=== PATIENT | female | born 1945 | race Two or more races ===

== ENCOUNTER 2019-11-19 22:53 | Inpatient (IN) | payer MEDICARE, MEDICAID ==
[~2019-11-19] VITALS: Ht 152.4 cm; Wt 126.2 kg
[~2019-11-19 22:53] MED LIST: ALPR0.25 PO; ALPR0.5T GT; ASPITAB34; BENA20TA PO; CARI-277 PO; FURO1TAB31 PO; HYDR-3547 OR; OXYB5TAB24 PO; SIMV-8 PO
[2019-11-20] VITALS (7 sets, daily range): BP systolic 103–136; BP diastolic 43–72
[2019-11-20 00:22] LABS: Basophils # (auto) 0.1 10 ^3/uL (0-0.2); Basophils % (auto) 0.7 % (0.0-2.0); Eosinophils # (auto) 0.2 10 ^3/uL (0-0.8); Eosinophils % (auto) 2.4 % (0.0-7.0); Hematocrit 38.3 % (36.0-46.0); Hemoglobin 12.3 g/dL (12.2-16.2); Lymphocytes # (auto) 1.9 10 ^3/uL (0.4-5.4); Lymphocytes % (auto) 19.1 % (10.0-50.0); Mean Corpuscular Hemoglobin 30.7 pg (28.0-32.0); Mean Corpuscular Hgb Conc. 32.2 g/dL (32.0-36.0); Mean Corpuscular Volume 95.2 fL (80.0-100.0); Monocytes # (auto) 0.7 10 ^3/uL (0-1.3); Monocytes % (auto) 7.1 % (0.0-12.0); Neutrophils # (auto) 6.9 10 ^3/uL (1.6-8.6); Neutrophils % (auto) 70.7 % (37.0-80.0); Nucleated Red Blood Cells % 0.1 %; Platelet Count (auto) 191 10^3/uL (140-450); Red Blood Cells 4.02 10^6/uL (4.0-5.20); Red Cell Distribution Width 17.4 % (11.8-14.3); White Blood Cell 9.8 10^3/uL (4.4-10.8)
[2019-11-20 00:37] LABS: INR 1.12 (0.9-1.15); Partial Thromboplastin Time 27.9 sec (23.64-32.05)
[2019-11-20 00:40] LABS: Albumin 2.5 g/dL (3.4-5.0); BUN/Creatinine Ratio 6.2; Calcium 9.7 mg/dL (8.5-10.1); Magnesium 2.3 mg/dL (1.6-2.6); Potassium 4.3 mmol/L (3.5-5.1)
[2019-11-20 00:45] LABS: Bilirubin, Total 0.8 mg/dL (0.2-1.0); Total Protein 7.7 g/dL (6.4-8.2)
[2019-11-20] MEDS ORDERED: FUROSEMIDE 20 MG/2 ML VIAL IV ONE (01:00)
[2019-11-20] MEDS ORDERED: methylPREDNISolone SOD SUCC 125 MG/2 ML VL IV ONE (01:00)
[2019-11-20] MEDS ORDERED: IOHEXOL 350 MG/ML 100ML IJ ONE (02:42)
[2019-11-20] MEDS ORDERED: TEMAZEPAM 15 MG CAP PO PRN (02:45)
[2019-11-20] MEDS ORDERED: ONDANSETRON HCL 4 MG/2 ML VIAL IV PRN (02:45)
[2019-11-20] MEDS ORDERED: NITROGLYCERIN 0.4 MG SL TAB SL PRN (03:00)
[2019-11-20] MEDS ORDERED: MORPHINE SULF INJ 2 MG/ML SYRINGE 1ML IV PRN (03:00)
[2019-11-20] MEDS: ALBUTEROL SULF 2.5 MG/0.5ML(0.5%) NEB SOLN NEB SCH ×3 (06:31→18:58)
[2019-11-20] MEDS: IPRATROPIUM BROM 0.5 MG/2.5ML INH SOL NEB SCH ×3 (06:31→18:58)
[2019-11-20] MEDS: FUROSEMIDE 40 MG TAB PO SCH ×2 (06:41→18:13)
[2019-11-20] MEDS: BENAZEPRIL HCL 10 MG TAB PO SCH (09:12)
[2019-11-20] MEDS: methylPREDNISolone SOD SUCC 125 MG/2 ML VL IV SCH ×2 (09:12→23:06)
[2019-11-20] MEDS: FAMOTIDINE 20 MG TAB PO SCH ×2 (09:12→22:00)
[2019-11-20] MEDS: APIXABAN 5 MG TAB PO SCH ×2 (09:12→22:59)
[2019-11-20] MEDS ORDERED: APIXABAN 5 MG TAB PO ONE (13:30)
[2019-11-20] MEDS: ALPRAZolam 0.5 MG TAB PO PRN (14:05)
[2019-11-21] MEDS: ALBUTEROL SULF 2.5 MG/0.5ML(0.5%) NEB SOLN NEB SCH ×4 (00:20→18:05)
[2019-11-21] MEDS: IPRATROPIUM BROM 0.5 MG/2.5ML INH SOL NEB SCH ×4 (00:20→18:05)
[2019-11-21] MEDS: FUROSEMIDE 40 MG TAB PO SCH ×2 (06:26→18:07)
[2019-11-21 09:00] VITALS: BP 104/63
[2019-11-21] MEDS: APIXABAN 5 MG TAB PO SCH ×2 (09:46→22:14)
[2019-11-21] MEDS: methylPREDNISolone SOD SUCC 125 MG/2 ML VL IV SCH ×2 (09:46→22:11)
[2019-11-21] MEDS: BENAZEPRIL HCL 10 MG TAB PO SCH (09:47)
[2019-11-21] MEDS: FAMOTIDINE 20 MG TAB PO SCH ×2 (09:48→22:15)
[2019-11-21 10:00] LABS: Basophils # (auto) 0 10 ^3/uL (0-0.2); Eosinophils # (auto) 0 10 ^3/uL (0-0.8); Hematocrit 37.4 % (36.0-46.0); Hemoglobin 11.9 g/dL (12.2-16.2); Lymphocytes # (auto) 0.7 10 ^3/uL (0.4-5.4); Lymphocytes % (auto) 9.8 % (10.0-50.0); Mean Corpuscular Hemoglobin 30.4 pg (28.0-32.0); Mean Corpuscular Hgb Conc. 31.7 g/dL (32.0-36.0); Monocytes # (auto) 0.2 10 ^3/uL (0-1.3); Monocytes % (auto) 2.7 % (0.0-12.0); Neutrophils # (auto) 6.1 10 ^3/uL (1.6-8.6); Neutrophils % (auto) 87.5 % (37.0-80.0); Nucleated Red Blood Cells % 0.2 %; Platelet Count (auto) 173 10^3/uL (140-450); Red Cell Distribution Width 16.7 % (11.8-14.3)
[2019-11-21 10:35] LABS: BUN/Creatinine Ratio 22.5; Calcium 11.5 mg/dL (8.5-10.1); Potassium 4.7 mmol/L (3.5-5.1)
[2019-11-21] MEDS: ACETAMINOPHEN 325 MG TAB PO PRN ×3 (11:00→22:59)
[2019-11-21 13:00] VITALS: BP 105/49
[2019-11-21 17:00] VITALS: BP 110/58
[2019-11-21 22:00] VITALS: BP 108/53
[2019-11-21] MEDS: ALPRAZolam 0.5 MG TAB PO PRN (22:16)
[2019-11-22] MEDS: ALBUTEROL SULF 2.5 MG/0.5ML(0.5%) NEB SOLN NEB SCH ×4 (00:40→19:39)
[2019-11-22] MEDS: IPRATROPIUM BROM 0.5 MG/2.5ML INH SOL NEB SCH ×4 (00:40→19:38)
[2019-11-22 05:00] VITALS: BP 98/63
[2019-11-22] MEDS: FUROSEMIDE 40 MG TAB PO SCH ×2 (06:32→17:53)
[2019-11-22] MEDS: ACETAMINOPHEN 325 MG TAB PO PRN (06:32)
[2019-11-22 08:43] VITALS: BP 129/68
[2019-11-22] MEDS: methylPREDNISolone SOD SUCC 125 MG/2 ML VL IV SCH ×2 (09:38→21:54)
[2019-11-22] MEDS: APIXABAN 5 MG TAB PO SCH ×2 (09:38→21:55)
[2019-11-22] MEDS: BENAZEPRIL HCL 10 MG TAB PO SCH (09:38)
[2019-11-22] MEDS: FAMOTIDINE 20 MG TAB PO SCH ×3 (09:38→22:00)
[2019-11-22] MEDS: HYDROcodone-ACET 5/325MG TAB PO PRN ×2 (09:39→20:03)
[2019-11-22 13:00] VITALS: BP 100/51
[2019-11-22 17:00] VITALS: BP 109/57
[2019-11-22] MEDS: ALPRAZolam 0.5 MG TAB PO PRN (21:55)
[2019-11-22 22:00] VITALS: BP 91/48
[2019-11-23] MEDS: ALBUTEROL SULF 2.5 MG/0.5ML(0.5%) NEB SOLN NEB SCH ×3 (02:44→11:02)
[2019-11-23] MEDS: IPRATROPIUM BROM 0.5 MG/2.5ML INH SOL NEB SCH ×3 (02:44→11:02)
[2019-11-23 03:48] VITALS: BP 109/57
[2019-11-23 05:00] VITALS: BP 119/64
[2019-11-23] MEDS: FUROSEMIDE 40 MG TAB PO SCH (06:00)
[2019-11-23 09:00] VITALS: BP 105/60
[2019-11-23] MEDS: methylPREDNISolone SOD SUCC 125 MG/2 ML VL IV SCH (09:38)
[2019-11-23] MEDS: APIXABAN 5 MG TAB PO SCH (09:38)
[2019-11-23] MEDS: BENAZEPRIL HCL 10 MG TAB PO SCH (09:39)
[2019-11-23] MEDS: FAMOTIDINE 20 MG TAB PO SCH (10:00)
[2019-11-23] MEDS ORDERED: LACTULOSE 20Gm/30ML SOLN PO ONE (12:00)
[2019-11-23 13:00] VITALS: BP 109/79
[2019-11-23] MEDS: HYDROcodone-ACET 5/325MG TAB PO PRN (13:05)
[2019-11-23] MEDS: ALPRAZolam 0.5 MG TAB PO PRN (14:11)
== END 2019-11-23 18:53 | disposition home health service (06) | DRG 189 ==
LOC: ER 22:53 → EDBD 22:53 → TELE-EAST 22:54
PROVIDERS: ADMIT Nurse Practitioner; ATTEND Family Medicine
DX: J96.20 Acute and chronic respiratory failure, unspecified whether with hypoxia or hypercapnia (principal); E43 Unspecified severe protein-calorie malnutrition; I50.33 Acute on chronic diastolic (congestive) heart failure; J44.1 Chronic obstructive pulmonary disease with (acute) exacerbation; J45.901 Unspecified asthma with (acute) exacerbation; E66.01 Morbid (severe) obesity due to excess calories; E78.00 Pure hypercholesterolemia, unspecified; F32.9 Major depressive disorder, single episode, unspecified; F41.9 Anxiety disorder, unspecified; Z20.828 Contact with and (suspected) exposure to other viral communicable diseases; E78.5 Hyperlipidemia, unspecified; I08.0 Rheumatic disorders of both mitral and aortic valves; I25.2 Old myocardial infarction; Z86.711 Personal history of pulmonary embolism; Z86.718 Personal history of other venous thrombosis and embolism; Z90.89 Acquired absence of other organs; Z68.38 Body mass index [BMI] 38.0-38.9, adult; I11.0 Hypertensive heart disease with heart failure; Z91.19 Patient's noncompliance with other medical treatment and regimen
CPT/HCPCS: 36415; 36600; 71045; 71275; 80048; 80053; 82805; 83735; 83880; 84484; 85025; 85379; 85610; 85730; 93005; 93970; 94640; 96374; 96375; G0378

== ENCOUNTER 2019-11-23 23:57 | Inpatient (IN) | payer MEDICARE, MEDICAID ==
[~2019-11-23] VITALS: Ht 160 cm; Wt 116.7 kg
[2019-11-24] MEDS ORDERED: LORazepam 2MG/ML-1ML VIAL IV ONE ×2 (01:45→06:15)
[2019-11-24] MEDS ORDERED: diphenhdrAMINE HCL 50 MG/1 ML VL ONE (01:48)
[2019-11-24 01:50] LABS: Basophils # (auto) 0 10 ^3/uL (0-0.2); Basophils % (auto) 0.1 % (0.0-2.0); Eosinophils # (auto) 0 10 ^3/uL (0-0.8); Hematocrit 39.4 % (36.0-46.0); Hemoglobin 12.6 g/dL (12.2-16.2); Lymphocytes # (auto) 0.7 10 ^3/uL (0.4-5.4); Lymphocytes % (auto) 6.5 % (10.0-50.0); Mean Corpuscular Hemoglobin 30.4 pg (28.0-32.0); Mean Corpuscular Hgb Conc. 32.1 g/dL (32.0-36.0); Mean Corpuscular Volume 94.6 fL (80.0-100.0); Monocytes # (auto) 0.7 10 ^3/uL (0-1.3); Monocytes % (auto) 6.1 % (0.0-12.0); Neutrophils # (auto) 9.6 10 ^3/uL (1.6-8.6); Neutrophils % (auto) 87.3 % (37.0-80.0); Platelet Count (auto) 135 10^3/uL (140-450); Red Blood Cells 4.16 10^6/uL (4.0-5.20); Red Cell Distribution Width 16.5 % (11.8-14.3)
[2019-11-24] MEDS ORDERED: diphenhdrAMINE HCL 50 MG/1 ML VL IV ONE ×2 (02:00→06:15)
[2019-11-24 02:06] LABS: Alanine Aminotransferase 20 U/L (13-56); Albumin 2.6 g/dL (3.4-5.0); Anion Gap 7 (5-15); Aspartate Aminotransferase 12 U/L (15-37); BUN/Creatinine Ratio 26.4; Blood Urea Nitrogen 19 mg/dL (7-18); Calcium 11.2 mg/dL (8.5-10.1); Carbon Dioxide 31 mmol/L (21-32); Chloride 98 mmol/L (98-107); GFR African American 102 mL/min; GFR Non-African American 84 mL/min; Glucose 124 mg/dL (74-106); INR 1.13 (0.9-1.15); Magnesium 2.5 mg/dL (1.6-2.6); Partial Thromboplastin Time 25.1 sec (23.64-32.05); Potassium 3.8 mmol/L (3.5-5.1); Sodium 136 mmol/L (136-145)
[2019-11-24 02:11] LABS: Alkaline Phosphatase 121 U/L (45-117); Bilirubin, Total 0.6 mg/dL (0.2-1.0); Total Protein 7.5 g/dL (6.4-8.2)
[2019-11-24 05:29] LABS: Urine Bacteria MOD /hpf (None Seen); Urine Blood TRACE /uL (Negative); Urine Mucus FEW (None Seen); Urine Specific Gravity 1.015 (1.001-1.035); Urine WBC 130 /hpf (0 - 5); Urine WBC Clumps PRESENT /hpf (None Seen)
[2019-11-24 05:31] LABS: Urine Amorphous Crystal FEW /hpf (None Seen)
[2019-11-24] MEDS ORDERED: cefTRIAXone 1GM/50ML D5W 50 ML IV ONE (05:45)
[2019-11-24] MEDS ORDERED: SODIUM CHLORIDE 0.9% 500 ML IV ONE (05:45)
[2019-11-24 07:18] LABS: Alcohol, Urine < 3.0 mg/dL (0-10); Amphetamine Screen, Urine NEGATIVE (NEGATIVE); Barbiturate Scree,Urine NEGATIVE (NEGATIVE); Benzodiazephine Screen, Urine POSITIVE (NEGATIVE); Cannabinoid Screen, Urine NEGATIVE (NEGATIVE); Cocaine Screen, Urine NEGATIVE (NEGATIVE); Opiate Scree,Urine NEGATIVE (NEGATIVE); Phencyclidine Screen, Urine NEGATIVE (NEGATIVE)
[2019-11-24] MEDS ORDERED: ACETAMINOPHEN 325 MG TAB PO PRN (07:45)
[2019-11-24] MEDS ORDERED: ALBUTEROL SULF 2.5 MG/0.5ML(0.5%) NEB SOLN NEB PRN (07:45)
[2019-11-24] MEDS ORDERED: FAMOTIDINE 20 MG TAB PO SCH (10:00)
[2019-11-24] MEDS ORDERED: ASPirin 81 mg TAB PO SCH (10:00)
[2019-11-24] MEDS: APIXABAN 5 MG TAB PO SCH ×2 (10:10→22:22)
[2019-11-24] MEDS: FAMOTIDINE (10MG/ML) 2ML VL IV SCH (10:27)
[2019-11-24] MEDS ORDERED: LORazepam 2MG/ML-1ML VIAL ONE (11:33)
[2019-11-24] MEDS ORDERED: LORazepam 2MG/ML-1ML VIAL IV PRN (11:45)
[2019-11-24] MEDS ORDERED: methylPREDNISolone SOD SUCC 125 MG/2 ML VL IV ONE (11:45)
[2019-11-24] MEDS: IPRATROPIUM BROM 0.5 MG/2.5ML INH SOL NEB SCH ×3 (14:10→22:17)
[2019-11-24] MEDS: ALBUTEROL SULF 2.5 MG/0.5ML(0.5%) NEB SOLN NEB SCH ×3 (14:10→22:17)
[2019-11-24 14:20] VITALS: BP 134/70
[2019-11-24] MEDS ORDERED: KETOROLAC TROMETH 30 MG/ML 1ML VIAL ONE (15:26)
[2019-11-24] MEDS: KETOROLAC TROMETH 30 MG/ML 1ML VIAL IV PRN (15:31)
[2019-11-24] MEDS ORDERED: FUROSEMIDE 40 MG TAB PO SCH (18:00)
[2019-11-24] MEDS ORDERED: FUROSEMIDE 20 MG/2 ML VIAL IV ONE (18:45)
[2019-11-24] MEDS: ATORVASTATIN 20 MG TAB PO SCH (22:22)
[2019-11-24] MEDS: methylPREDNISolone SOD SUCC 125 MG/2 ML VL IV SCH (22:22)
[2019-11-25] MEDS: IPRATROPIUM BROM 0.5 MG/2.5ML INH SOL NEB SCH ×6 (01:58→22:18)
[2019-11-25] MEDS: ALBUTEROL SULF 2.5 MG/0.5ML(0.5%) NEB SOLN NEB SCH ×6 (01:59→22:18)
[2019-11-25] MEDS: KETOROLAC TROMETH 30 MG/ML 1ML VIAL IV PRN ×2 (05:11→13:16)
[2019-11-25 08:08] LABS: Basophils # (auto) 0 10 ^3/uL (0-0.2); Basophils % (auto) 0.1 % (0.0-2.0); Eosinophils # (auto) 0 10 ^3/uL (0-0.8); Hematocrit 37.3 % (36.0-46.0); Lymphocytes # (auto) 0.7 10 ^3/uL (0.4-5.4); Lymphocytes % (auto) 8.1 % (10.0-50.0); Mean Corpuscular Hemoglobin 30.4 pg (28.0-32.0); Mean Corpuscular Hgb Conc. 32.1 g/dL (32.0-36.0); Mean Corpuscular Volume 94.6 fL (80.0-100.0); Monocytes # (auto) 0.4 10 ^3/uL (0-1.3); Neutrophils # (auto) 7.7 10 ^3/uL (1.6-8.6); Neutrophils % (auto) 86.8 % (37.0-80.0); Nucleated Red Blood Cells % 0.1 %; Platelet Count (auto) 132 10^3/uL (140-450); Red Blood Cells 3.94 10^6/uL (4.0-5.20); Red Cell Distribution Width 16.7 % (11.8-14.3); White Blood Cell 8.8 10^3/uL (4.4-10.8)
[2019-11-25 08:25] LABS: BUN/Creatinine Ratio 35.3; Calcium 11.6 mg/dL (8.5-10.1); Potassium 4.2 mmol/L (3.5-5.1)
[2019-11-25] MEDS: cefTRIAXone 1GM/50ML D5W 50 ML IV SCH (09:19)
[2019-11-25] MEDS: FUROSEMIDE 20 MG/2 ML VIAL IV SCH (09:47)
[2019-11-25] MEDS: FAMOTIDINE (10MG/ML) 2ML VL IV SCH (09:47)
[2019-11-25] MEDS: APIXABAN 5 MG TAB PO SCH (09:48)
[2019-11-25] MEDS: methylPREDNISolone SOD SUCC 125 MG/2 ML VL IV SCH (09:48)
[2019-11-25] MEDS ORDERED: DOCU1CAP31 PO (17:57)
[2019-11-25] MEDS ORDERED: APIX5TAB PO (17:57)
[2019-11-25] MEDS ORDERED: IPRA0.00 NEB (17:57)
[2019-11-25] MEDS ORDERED: BENA10TA9 PO (17:57)
[2019-11-25] MEDS ORDERED: HYDR-4798 PO (17:57)
[2019-11-25] MEDS ORDERED: POTA-180 PO (18:00)
[2019-11-25] MEDS ORDERED: CETI10TA80 PO (18:00)
[2019-11-25] MEDS ORDERED: ALBUAER3 IN (18:01)
--- NOTE | 2019-11-25 20:45 | NUR ---
Telemetry admit from ER MYRIAM SCHWAB admitted to Telemetry unit after SBAR received. Patient oriented to Libby Alvarado, primary RN, unit, room, bed, and unit policies regarding patient care and visiting hours. Patient now on continuous telemetry monitoring, tele box 26# and telemetry reading on arrival to unit is NSR 81. Patient placed on bedside oxygen, weighed by bedscale and encouraged to call if they need something. All questions and concerns addressed, patient verbalized understanding. Note:
[2019-11-25 21:42] VITALS: BP 125/75
--- NOTE | 2019-11-25 23:00 | NUR ---
PT SPILT WATER ALL OVER BED;TURNED WITH GOWN AND CLEAN LINEN APPLIED.
[2019-11-26] MEDS: ATORVASTATIN 20 MG TAB PO SCH ×2 (00:39→21:56)
[2019-11-26] MEDS: APIXABAN 5 MG TAB PO SCH ×3 (00:39→21:56)
[2019-11-26] MEDS: methylPREDNISolone SOD SUCC 125 MG/2 ML VL IV SCH ×3 (00:39→21:55)
--- NOTE | 2019-11-26 02:00 | NUR ---
PT SPILT A WHOLE PITCHER OF WATER ALL OVER BED;CLEAN DRY LINEN AND GOWN APPLIED TO PT;PT TURNED AND REPOSITIONED.
[2019-11-26] MEDS: ALBUTEROL SULF 2.5 MG/0.5ML(0.5%) NEB SOLN NEB SCH ×6 (02:41→22:06)
[2019-11-26] MEDS: IPRATROPIUM BROM 0.5 MG/2.5ML INH SOL NEB SCH ×6 (02:42→22:06)
[2019-11-26 05:47] VITALS: BP 131/82
--- NOTE | 2019-11-26 06:39 | NUR ---
PT TURNED AND PULLED UP;DENIES PAIN;CALL LIGHT IN REACH.WILL CONTINUE TO MONITOR.
[2019-11-26] MEDS ORDERED: LACTULOSE 20Gm/30ML SOLN PO ONE (08:45)
[2019-11-26] MEDS ORDERED: FLEET ENEMA(ADULT) 135 ML PR ONE (08:45)
[2019-11-26] MEDS: cefTRIAXone 1GM/50ML D5W 50 ML IV SCH (08:51)
[2019-11-26 09:00] VITALS: BP 136/69
[2019-11-26] MEDS: FAMOTIDINE (10MG/ML) 2ML VL IV SCH (10:10)
--- NOTE | 2019-11-26 10:10 | NUR ---
Respiratory note: 1000 MED NEB NOT GIVEN. THERAPIST UNAVAILABLE WITH CRITICAL PT.
[2019-11-26] MEDS: FUROSEMIDE 20 MG/2 ML VIAL IV SCH (10:11)
--- NOTE | 2019-11-26 10:12 | NUR ---
FLEET ENEMA GIVEN. PATIENT HAD TWO LARGE SOFT BM.
--- NOTE | 2019-11-26 12:52 | NUR ---
ESBL ECOLI IN URINE DR DANIEL NOTIFIED. ORDERS FOR PICC LINE AND INVANZ.
[2019-11-26 13:00] VITALS: BP 123/66
[2019-11-26] MEDS ORDERED: ERTAPENEM SOD INJ 1 GM in SODIUM CHL 0.9% 50 ML IV ONE (13:00)
[2019-11-26] MEDS: MEROPENEM 1GM IVPB 100 ML IV SCH ×2 (15:51→21:55)
--- NOTE | 2019-11-26 16:00 | NUR ---
Midline Placement: Patient educated on need for midline placement. All risks and benefits explained and all questions and concerns addresses prior to procedure. 18g/10cm midline inserted via L BASILIC vein using Ultrasound. Sterile technique utilized. Blood return obtained from SINGLE lumen and flushed easily with NS using proper technique. Midline secured with saline lock; biodisc and occlusive dressing applied. Primary RN notified. Midline lot # [id number].
[2019-11-26 17:26] VITALS: BP 132/79
--- NOTE | 2019-11-26 19:10 | NUR ---
opening note pt alert to self and place. respirations even nonlabored on room 2lnc. POC discussed. pt on contact isolation. bed in low locked position, call light within reach.
--- NOTE | 2019-11-26 20:00 | NUR ---
Hospitalist Farhan new verbal orders received: Temazepam 15mg PO once. orders read back and verified.
[2019-11-26] MEDS ORDERED: TEMAZEPAM 15 MG CAP PO ONE (21:00)
[2019-11-26 22:00] VITALS: BP 138/72
[2019-11-27] VITALS (7 sets, daily range): BP systolic 107–132; BP diastolic 63–80
[2019-11-27] MEDS: IPRATROPIUM BROM 0.5 MG/2.5ML INH SOL NEB SCH ×6 (02:05→22:22)
[2019-11-27] MEDS: ALBUTEROL SULF 2.5 MG/0.5ML(0.5%) NEB SOLN NEB SCH ×6 (02:05→22:21)
[2019-11-27] MEDS: MEROPENEM 1GM IVPB 100 ML IV SCH ×3 (05:45→21:14)
--- NOTE | 2019-11-27 07:14 | NUR ---
closing note pt resting in semi fowlers with HOB at 30 degrees. respirations even and nonlabored on 2Lnc. bed in low locked position call light within reach.
--- NOTE | 2019-11-27 09:00 | NUR ---
pt seen by Dr. Lopez made aware pt has blood in her sputum, per Dr. Lopze will monitor the sputum and if it gets worst he will change eliquis to once a day. will continue to monitor.
[2019-11-27] MEDS ORDERED: ERTAPENEM SOD INJ 1 GM in SODIUM CHL 0.9% 50 ML IV SCH (10:00)
[2019-11-27] MEDS: DOCUSATE SOD 100 MG CAP PO SCH ×2 (10:01→21:14)
[2019-11-27] MEDS: APIXABAN 5 MG TAB PO SCH ×2 (10:01→21:14)
[2019-11-27] MEDS: FAMOTIDINE (10MG/ML) 2ML VL IV SCH (10:01)
[2019-11-27] MEDS: FUROSEMIDE 20 MG/2 ML VIAL IV SCH (10:02)
[2019-11-27] MEDS: methylPREDNISolone SOD SUCC 125 MG/2 ML VL IV SCH ×2 (10:02→21:12)
--- NOTE | 2019-11-27 10:15 | NUR ---
pt is up on chair, pt had a bowel movement, soft, brown in moderate amount.
--- NOTE | 2019-11-27 10:20 | NUR ---
PT REFUSED PHOTO OF HER SACRAL AREA AT THIS TIME. NOTED HYPERPIGMENTATION, PURPLE, FLAKING AND POSSIBLE DTI ON SACRAL AREA.
--- NOTE | 2019-11-27 10:25 | NUR ---
Z GUARD AND OPTIFOAM APPLIED TO SACRAL AREA.
--- NOTE | 2019-11-27 11:01 | NUR ---
Dr. Lopez at nurses station , made aware pt is asking for her xanax medication, received order for xanax 0.5mg PO TID, order read back and verified.
[2019-11-27] MEDS: ALPRAZolam 0.5 MG TAB PO SCH ×2 (11:37→11:41)
--- NOTE | 2019-11-27 12:53 | NUR ---
Nutrition Assessment Notes Please refer to link for full assessment notes. Est Energy needs: 2346-2417 kcals (12-15 kcal/kgBW) Est Protein needs: 105-131 gms/day (2.0-2.5 gm/kgIBW) d/t pt adiposity Will continue to monitor and reassess prn. Addendum: 11/27/19 at [address] Amended: Links added.
--- NOTE | 2019-11-27 13:09 | NUR ---
assessment Patient is a 73 year old female who is confused. Per patients son Reed prior to admission patient resided home with him and needed assistance. Patient has a scooter oxygen and a fww for home use. Patients PCP is Dr Lomas. Patients other son Forest is her [facility] caregiver. Patient is on service with [facility]. Patient will need a resumption order on discharge. Reed verbalized understanding and agreed to discharge plan home. Addendum: 11/27/19 at 1312 by Fanta KEBEDE Amended: Links added.
--- NOTE | 2019-11-27 13:11 | NUR ---
DR. DANIEL MADE AWARE PT IS IN DEEP SLEEP AFTER XANAX WAS GIVEN, DR. DANIEL ORDERED TO DISCONTINUE XANAX.
--- NOTE | 2019-11-27 15:37 | NUR ---
ATTEMPTED TO TAKE PHOTO OF PT'S SACRAL AREA, PT REFUSED AT THIS TIME AND REQUESTED TO COME BACK IN 15 MINUTES.
--- NOTE | 2019-11-27 16:15 | NUR ---
WOUND PHOTO ON SACRAL AREA TAKEN.
[2019-11-27] MEDS: KETOROLAC TROMETH 30 MG/ML 1ML VIAL IV PRN (21:12)
[2019-11-27] MEDS: ATORVASTATIN 20 MG TAB PO SCH (21:14)
[2019-11-28] MEDS: IPRATROPIUM BROM 0.5 MG/2.5ML INH SOL NEB SCH ×6 (02:46→22:08)
[2019-11-28] MEDS: ALBUTEROL SULF 2.5 MG/0.5ML(0.5%) NEB SOLN NEB SCH ×6 (02:46→22:08)
--- NOTE | 2019-11-28 02:49 | NUR ---
Respiratory note: AT BEDSIDE FOR MED NEB TX PT REFUSED WANT TO CONTINUE RESTING. COMMUNICATED TO KATIE RIDER.
[2019-11-28 05:00] VITALS: BP 116/74
[2019-11-28] MEDS: MEROPENEM 1GM IVPB 100 ML IV SCH ×3 (06:49→23:27)
--- NOTE | 2019-11-28 07:28 | NUR ---
End of Shift Note Endorsed care to dayshift nurse. At this time patient has no s/s of distress or SOB. Respirations are even and unlabored.
--- NOTE | 2019-11-28 07:45 | NUR ---
Opening shift note assumed care of patient form NOR RN Елена. Patient is Aox4. Bed is in lowest locked position, side rails up x2, and call light with in reach. Updated patient on plan of care and patient verbalized understanding. I will continue to monitor Q1hr and PRN.
--- NOTE | 2019-11-28 08:40 | NUR ---
Physician rounding Dr. Lopez at bedside. Update him on patient status. No new orders received at this time.
[2019-11-28 09:00] VITALS: BP 108/55
[2019-11-28] MEDS ORDERED: LACTULOSE 20Gm/30ML SOLN PO ONE (10:30)
--- NOTE | 2019-11-28 11:00 | NUR ---
WOUND CARE NOTE: IN TO SEE PATIENT AT THIS TIME PER WOUND CARE REQUEST. PATIENT NOTED TO HAVE DTI TO SACRUM UPON ASSESSMENT. WOUND CONSULT ORDERED, WOUND PHOTO TAKEN AT THAT TIME BY BEDSIDE NURSE FOR REFERENCE. PATIENT ADMITTED TO [facility] WITH DIAGNOSIS OF METABOLIC ENCEPHALITIS, UTI. PATIENT HAS CURRENT ARSEN SCORE 20. PATIENT CAN SELF TURN/REPOSITION SELF. SHE HAS NOT BEEN REPOSITIONING, IN SPITE OF STAFF GOING IN TO ASSIST HER. PATIENT SAYS THAT IT HURTS TOO MUCH D/T HER FIBROMYALGIA. PATIENT REFUSES TO ALLOW STAFF TO TOUCH HER, BECAUSE OF HER FIBROMYALGIA. PATIENT AGREES TO TURN SELF TO RIGHT SIDE, SO THIS WOUND CARE NURSE CAN VISUALIZE HER SACRUM. PATIENT IS NOTED TO HAVE AN INTACT MAROON/PURPLE DTI TO THE RIGHT SACRUM/BUTTOCK; AND AN OLD DTI THAT IS PURPLE, EVOLVED OPEN TO STAGE 2. PATIENT EDUCATED ON NEED TO REDISTRIBUTE PRESSURE AND PRESSURE ULCERS. PATIENT VERBALIZED UNDERSTANDING, AND IS IN AGREEMENT TO ACCEPT AN AIR BED, WELL SIDE TO SIDE POSITIONING, POSSIBLY GETTING UP IN CHAIR. APPLIED ZGUARD, OPTIFOAM GENTLE DRESSING TO RIGHT SACRUM/BUTTOCKS WOUND. ALL WOUND STATS CAN BE FOUND WITHIN WOUND ASSESSMENT INTERVENTION, LINKED TO THIS NOTE. SKIN/WOUND CARE PLAN UPDATED. SPECIALTY AIR BED ORDERED. PATIENT TO BE PLACED, PENDING DELIVERY BY [facility]. RECOMMEND: FREQUENT SIDE TO SIDE POSITIONING Q 2 HOURS, PRN CONDITION PERMITS, WITH PRESSURE REDISTRIBUTION USING PILLOWS/WEDGES, SPECIALTY AIR BED, SKIN/WOUND CARE PLAN, DAILY/PRN DRESSING CHANGE TO LEFT SACRUM WOUND, DIETARY CONSULT, CONTINUED MONITORING BY WOUND CARE TEAM. Addendum: 11/28/19 at 1450 by Clarissa Saavedra RN Amended: Links added.
[2019-11-28] MEDS ORDERED: METOPROLOL TARTRATE 25 MG TAB PO ONE (11:15)
[2019-11-28] MEDS: APIXABAN 5 MG TAB PO SCH ×2 (11:31→23:28)
[2019-11-28] MEDS: methylPREDNISolone SOD SUCC 125 MG/2 ML VL IV SCH ×2 (11:31→23:27)
[2019-11-28] MEDS: DOCUSATE SOD 100 MG CAP PO SCH ×2 (11:31→23:28)
[2019-11-28] MEDS: FAMOTIDINE (10MG/ML) 2ML VL IV SCH (11:31)
[2019-11-28] MEDS: FUROSEMIDE 20 MG/2 ML VIAL IV SCH (11:34)
[2019-11-28 13:00] VITALS: BP 117/60
[2019-11-28] MEDS ORDERED: ATENOLOL 50 MG TAB PO ONE (13:45)
[2019-11-28] MEDS ORDERED: hydrALAZINE HCL 20 MG/ML VL IV PRN (13:45)
[2019-11-28 17:00] VITALS: BP 130/76
--- NOTE | 2019-11-28 18:00 | NUR ---
RT NOTE PT WAS SEEN BY RT FOR HHN TX. PT TOLERATES WELL VIA TREMAINE Layton. NO ADVERSE REACTION NOTED. CONT ORDERED Addendum: 11/28/19 at 1806 by Jesica Hansen RT Amended: Links added.
--- NOTE | 2019-11-28 19:37 | NUR ---
End of shift note endorsed care to NOC KATIE Morris. No s/s of distress noted.
[2019-11-28 22:00] VITALS: BP 120/64
--- NOTE | 2019-11-28 22:08 | NUR ---
RT NOTE PT WAS SEEN BY RT FOR HHN TX. PT TOLERATES WELL VIA MASK. NO ADVERSE REACTION NOTED. PT REQUESTING A LONGER CANNULA. ONE PROVIDED. CONT ORDERED Addendum: 11/29/19 at 0109 by Jesica Hansen RT Amended: Links added.
[2019-11-28] MEDS: LACTULOSE 20Gm/30ML SOLN PO SCH (23:28)
[2019-11-28] MEDS: ATORVASTATIN 20 MG TAB PO SCH (23:28)
[2019-11-28] MEDS: METOPROLOL TARTRATE 25 MG TAB PO SCH (23:30)
[2019-11-29] MEDS: IPRATROPIUM BROM 0.5 MG/2.5ML INH SOL NEB SCH ×6 (02:45→22:28)
[2019-11-29] MEDS: ALBUTEROL SULF 2.5 MG/0.5ML(0.5%) NEB SOLN NEB SCH ×6 (02:45→22:28)
--- NOTE | 2019-11-29 02:55 | NUR ---
RT NOTE PT WAS SEEN BY RT FOR HHN TX. PT TOLERATES WELL VIA MASK. NO ADVERSE REACTION NOTED. PT COMPLAINS OF DRY NOSE. BUBBLE HUMIDIFIER PROVIDED. CONT ORDERED Addendum: 11/29/19 at 0402 by Jesica Hansen RT Amended: Links added.
[2019-11-29] MEDS: ONDANSETRON HCL 4 MG/2 ML VIAL IV PRN ×2 (03:02→16:05)
[2019-11-29 05:00] VITALS: BP 141/75
[2019-11-29] MEDS: MEROPENEM 1GM IVPB 100 ML IV SCH ×3 (06:21→22:02)
--- NOTE | 2019-11-29 07:30 | NUR ---
OPENING NOTE RECEIVED REPORT FROM NOC RN. POC POSSIBLE DC. PATIENT RESTING IN BED WHILE NURSE CLINICIAN CUTTING PATIENT'S FOOD. EDUCATED PATIENT THAT SHE IS ABLE TO FEED HERSELF. PATIENT STATED SHE THOUGHT SHE WAS NOT READY, AND I REMINDED HER SHE IS ABLE AND CAPABLE TO FEED HERSELF. PATIENT HAS NO C/O PAIN. NO S/S OF DISTRESS NOTED.
[2019-11-29 09:05] VITALS: BP 122/71
--- NOTE | 2019-11-29 09:45 | NUR ---
PATIENT REFUSES CARE PATIENT REFUSES TO TURN ADEQUATELY, WHEN ABLE TO DO SO FOR HERSELF. EDUCATED THE IMPORTANCE OF TURNING IN PREVENTING SKIN BREAKDOWN. PATIENT ACKNOWLEDGED THE NEED, BUT RETURN TO THE SAME SITTING POSITION, SITTING ON SACRUM.
[2019-11-29] MEDS ORDERED: ATENOLOL 50 MG TAB PO SCH (10:00)
[2019-11-29] MEDS: DOCUSATE SOD 100 MG CAP PO SCH ×2 (10:03→22:00)
[2019-11-29] MEDS: LACTULOSE 20Gm/30ML SOLN PO SCH ×2 (10:03→22:01)
[2019-11-29] MEDS: APIXABAN 5 MG TAB PO SCH ×2 (10:03→22:01)
[2019-11-29] MEDS: FUROSEMIDE 20 MG/2 ML VIAL IV SCH (10:03)
[2019-11-29] MEDS: FAMOTIDINE (10MG/ML) 2ML VL IV SCH (10:03)
[2019-11-29] MEDS: methylPREDNISolone SOD SUCC 125 MG/2 ML VL IV SCH ×2 (10:03→22:00)
[2019-11-29] MEDS: METOPROLOL TARTRATE 25 MG TAB PO SCH ×2 (10:04→22:00)
--- NOTE | 2019-11-29 11:30 | NUR ---
PATIENT UP AND OUT OF BED PATIENT SITTING IN CHAIR, NO S/S OF DISTRESS AND NO C/O PAIN. STAFF WAS ABLE TO PLACE AIRBED IN TO ROOM.
[2019-11-29 12:52] VITALS: BP 118/70
--- NOTE | 2019-11-29 14:23 | NUR ---
UNABLE TO FLUSH MIDLINE, 3X FLUSHES USED RESISTANCE MET FOR EACH PUSH. WILL CONTACT MIDLINE RN FOR NEW MIDLINE
--- NOTE | 2019-11-29 14:29 | NUR ---
COMMUNICATION CALLED ED FOR KATIE TREVINO FOR MIDLINE PLACEMENT, AFTER SHIFT. KATIE TREVINO AGREED.
[2019-11-29 16:51] VITALS: BP 113/60
--- NOTE | 2019-11-29 19:35 | NUR ---
Opening Shift Note Assumed care of patient, awake and alert. No S/S of distress/SOB or pain. bed in lowest locked position, safety precautions in place and call light within reach. Instructed on POC and to call for assist PRN, will continue to monitor for changes Q1hr and PRN. Signed: 11/30/19 at 46 by JOSE LUIS DOAN SN <Co-Signature Required> Co-Signed: 11/30/19 at 46 by Christine Rodriguez RN RN
--- NOTE | 2019-11-29 20:00 | NUR ---
Midline Placement: Patient educated on need for midline placement. All risks and benefits explained and all questions and concerns addresses prior to procedure. 18g/10cm midline inserted via LEFT BASILIC vein using Ultrasound. Sterile technique utilized. Blood return obtained from SINGLE lumen and flushed easily with NS using proper technique. Midline secured with saline lock; biodisc and occlusive dressing applied. Primary RN notified. Midline lot # [id number].
[2019-11-29] MEDS: ATORVASTATIN 20 MG TAB PO SCH (22:01)
[2019-11-29 22:15] VITALS: BP 97/64
--- NOTE | 2019-11-29 22:30 | NUR ---
HOSPITALIST Paged and received call from hospitalist on-call, Dr. Perez. New orders received, read back and verified. Will input and carry out
[2019-11-29] MEDS: traMADol HCL 50 MG TAB PO PRN (23:36)
[2019-11-30] MEDS: IPRATROPIUM BROM 0.5 MG/2.5ML INH SOL NEB SCH ×7 (02:32→22:37)
[2019-11-30] MEDS: ALBUTEROL SULF 2.5 MG/0.5ML(0.5%) NEB SOLN NEB SCH ×7 (02:32→22:37)
[2019-11-30 05:10] VITALS: BP 116/61
[2019-11-30] MEDS: traMADol HCL 50 MG TAB PO PRN (05:42)
[2019-11-30] MEDS: MEROPENEM 1GM IVPB 100 ML IV SCH ×3 (05:44→21:55)
[2019-11-30 09:00] VITALS: BP 120/66
[2019-11-30] MEDS: FAMOTIDINE (10MG/ML) 2ML VL IV SCH (09:32)
[2019-11-30] MEDS: FUROSEMIDE 20 MG/2 ML VIAL IV SCH (09:32)
[2019-11-30] MEDS: LACTULOSE 20Gm/30ML SOLN PO SCH ×2 (09:33→21:57)
[2019-11-30] MEDS: methylPREDNISolone SOD SUCC 125 MG/2 ML VL IV SCH ×2 (09:33→21:56)
[2019-11-30] MEDS: DOCUSATE SOD 100 MG CAP PO SCH ×2 (09:33→21:57)
[2019-11-30] MEDS: APIXABAN 5 MG TAB PO SCH ×2 (09:33→21:57)
[2019-11-30] MEDS: METOPROLOL TARTRATE 25 MG TAB PO SCH ×2 (09:33→21:58)
--- NOTE | 2019-11-30 11:45 | NUR ---
Nutrition Follow-up/Consult Notes Wt.: 126.3 kg Pt sleeping with no family by bedside. per records pt with copd exacerbation. pt is currently on cardiac diet with adequate Po of > 75% x 6 per RN doc Est Energy needs: 6576-5562 kcals (12-15 kcal/kgBW), Est Protein needs: 105-131 gms/day (2.0-2.5 gm/kgIBW) d/t pt adiposity. Will continue to monitor and reassess prn. Labs: BUN 24 H, CO2 35 H, GLU 142 H, CA 11.6 H Skin: Art scale 14 mod risk, pt with pressure ulcers per stretch press operator. refer to WC notes for details GI: Pt had 1 BM 11/23 per stretch press operator. PES: 1) Obesity aeb 244% IBW and BMI of 49.7 kg/m2 r/t energy intake in excess of energy needs 2) Altered nutrition related lab values aeb elev CO2, hyperglycemia, hypercalcemia, mod hypoalbuminemia r/t current medical condition Will continue to monitor PO intake, skin status, pertinent labs and weight trend. F/u in 3-5 days. Rec.: 1.) Consider MVI/C bid. 2)Continue to closely monitor pt PO intake to meet at least 75% of meals. 2) Continue current plan of care
[2019-11-30 13:00] VITALS: BP 114/65
[2019-11-30] MEDS ORDERED: HYDROcodone-ACET 5/325MG TAB PO PRN (13:45)
[2019-11-30 14:16] VITALS: BP 119/61
--- NOTE | 2019-11-30 19:35 | NUR ---
Opening Shift Note Assumed care of patient, awake and alert. No S/S of distress/SOB or pain. Bed in lowest locked position, safety precautions in place, and call light within reach. Instructed on POC and to call for assist PRN, will continue to monitor for changes Q1hr and PRN. Signed: 11/30/19 at 2337 by JOSE LUIS DOAN SN <Co-Signature Required> Co-Signed: 11/30/19 at 2337 by Christine Rodriguez RN RN
[2019-11-30 21:28] VITALS: BP 112/73
[2019-11-30] MEDS: ATORVASTATIN 20 MG TAB PO SCH (21:57)
[2019-12-01] MEDS: ALBUTEROL SULF 2.5 MG/0.5ML(0.5%) NEB SOLN NEB SCH ×6 (02:41→22:16)
[2019-12-01] MEDS: IPRATROPIUM BROM 0.5 MG/2.5ML INH SOL NEB SCH ×6 (02:41→22:16)
[2019-12-01 04:45] VITALS: BP 114/58
[2019-12-01] MEDS: MEROPENEM 1GM IVPB 100 ML IV SCH ×3 (05:22→21:12)
--- NOTE | 2019-12-01 08:00 | NUR ---
RECEIVED PATIENT ALERT AND ORIENTED X4, NOT IN DISTRESS, DIMINISHED LS IN BILATERAL UPPER AND CRACKLES SOUNDS IN LOWER LOBES NOTED, RR=16 SAT= 95% WITH O2 2L NC, DEEP BREATHING AND COUGHING ENCOURAGED, VERBALIZED UNDERSTANDING, DENIED SOB AND CHEST PAIN AT THIS MOMENT, SR R=76 ON TELE MONITOR, ABDOMEN SOFT WITH ACTIVE BS, LAST BM=11/28/19 REPORTED, CURRAN CATH IN PLACE AND PATENT, DRAINING CLEAR YELLOW URINE, SACRAL WOUND COVERED WITH DRY AND INTACT OPTI FOAM DRESSING, RT. LOWER EXTREMITY PITTING EDEMA 2+ NOTED, LT LOWE EXTREMITY NONE PITTING EDEMA NOTED, ABLE TO MOVE LEGS AND WIGGLE TOES, RADIAL AND PEDAL PULSES PALPABLE, IN FLUID RESTRICTION 1.2TO 2L/DAY, LIMITING FLUID INTAKE EDUCATION PROVIDED, VERBALIZED UNDERSTANDING, ON CONTACT ISOLATION ORDERED, DENIED PAIN, RESTING ON BED, HEAD OF BED ELEVATED, BED ON LOW POSITION, RAILS UP X2, CALL LIGHT ON REACH, PENDING SS FOR D/C PROCESS, WILL CONTINUE MONITORING.
[2019-12-01 08:16] VITALS: BP 112/62
--- NOTE | 2019-12-01 09:45 | NUR ---
NOT IN DISTRESS, DENIED PAIN, PENDING D/C, DELIO CARDENAS WAS CONTACTED FOR UPDATES AND FOLLOW UP ABOUT HOME O2 WALKER AND MEDICATION, PENDING D/C PROCESS REPORTED, PT WAS CONTACTED FOR FOLLOW UP, WILL CONTINUE MONITORING.
[2019-12-01] MEDS: FUROSEMIDE 20 MG/2 ML VIAL IV SCH (10:42)
[2019-12-01] MEDS: FAMOTIDINE (10MG/ML) 2ML VL IV SCH (10:42)
[2019-12-01] MEDS: methylPREDNISolone SOD SUCC 125 MG/2 ML VL IV SCH ×2 (10:42→21:12)
[2019-12-01] MEDS: LACTULOSE 20Gm/30ML SOLN PO SCH ×2 (10:42→21:12)
[2019-12-01] MEDS: DOCUSATE SOD 100 MG CAP PO SCH ×2 (10:42→21:12)
[2019-12-01] MEDS: METOPROLOL TARTRATE 25 MG TAB PO SCH ×2 (10:43→21:13)
[2019-12-01] MEDS: APIXABAN 5 MG TAB PO SCH ×2 (10:43→21:12)
--- NOTE | 2019-12-01 11:00 | NUR ---
PULL OUT LT. UPPER ARM MIDLINE, DR. FREDY Bueno NOTIFIED, PENDING NEW PICC LINE INSERTION, PICC LINE NURSE WAS CONTACTED AND NOTIFIED, WILL CONTINUE MONITORING.
--- NOTE | 2019-12-01 11:50 | NUR ---
OUT OF BED WITH PT TO THE CHAIR, TRANSFERRED TO BSC REQUESTED, NO BM NOTED, C/O CONSTIPATION, DR. FREDY Bueno WAS NOTIFIED, NOT IN DISTRESS AND DENIED PAIN, WILL CONTINUE MONITORING.
[2019-12-01] MEDS ORDERED: FLEET ENEMA(ADULT) 135 ML PR ONE (12:00)
[2019-12-01 12:08] VITALS: BP 132/74
--- NOTE | 2019-12-01 14:26 | NUR ---
Midline Placement: Patient educated on need for midline placement. All risks and benefits explained and all questions and concerns addresses prior to procedure. 18g/10cm midline inserted via left basilic vein using Ultrasound. Sterile technique utilized. Blood return obtained from lumen and flushed easily with NS using proper technique. Midline secured with saline lock; biodisc and occlusive dressing applied. Primary RN notified. Midline lot #[id number]
--- NOTE | 2019-12-01 15:30 | NUR ---
FLEET ENEMA X1 WAS ADMINISTERED ORDERED, SMALL HARD BROWN BM NOTED, D/C EVALUATION PICTURE WAS TAKEN, WOUND CLEANED AND DRESSING WAS CHANGED ORDERED, TOLERATED WELL, PENDING D/C, WILL CONTINUE MONITORING.
--- NOTE | 2019-12-01 15:58 | NUR ---
DELIO CARDENAS WAS CONTACTED FOR D/C STATUS FOLLOW UP, PENDING D/C PROCESS NO PROGRESS FOR TODAY REPORTED, DR. FREDY URIOSTEUGI WAS CALLED FOR FOLLOW UP AND D/C DELAY UPDATES LEFT A MESSAGE, WAITING FOR CALL BACK, MJ MANNING WAS CONTACTED ON [phone] AND UPDATED REQUESTED, WILL CONTINUE MONITORING.
--- NOTE | 2019-12-01 16:00 | NUR ---
D/C Planning Per SS consult to resume home health with [facility] for IV abx, home oxygen at 3 l/min and walker. CHENG Villegas will complete IV abx. Informed KATIE Taylor patient has a walker at home that was given to her on 07/31/2019 from [facility]. Faxed clinical information to [facility] and [facility] for home O2 at 3l/min requesting for them to teach patient and family at home how to properly use the home oxygen. Per Елена with [facility] portable will be deliver to bedside and concentrate to home. [facility] they will teach patient son Reed. Per Lilli ith [facility] they will resume service for patient within 24hrs upon d/c day. Informed KATIE Taylor
[2019-12-01 16:32] VITALS: BP 114/58
[2019-12-01] MEDS ORDERED: LACTULOSE 20Gm/30ML SOLN PO ONE (18:30)
--- NOTE | 2019-12-01 19:27 | NUR ---
Resting on bed, not in distress, head of bed elevated, bed on low position, rails up x2, call light on reach, report was given to the manager shift RN.
--- NOTE | 2019-12-01 19:30 | NUR ---
Opening Shift Note Assumed care of patient, awake and alert. No S/S of distress/SOB or pain. Insructed on POC and to callfor assist PRN, will continue to monitor for changes Q1hr and PRN. Fall and safety precautions in place. Call light within reach.
[2019-12-01] MEDS: ATORVASTATIN 20 MG TAB PO SCH (21:12)
[2019-12-01 22:00] VITALS: BP 122/70
--- NOTE | 2019-12-02 | NUR ---
DISTURBANCE Patient screaming in room "HELP ME! HELP ME!" Primary RN was preoccupied in another patient's room when VICE PRESIDENT SALES entered room to find patient turned on her side, reaching into her bottom with her hand, saying "GET IT OUT!" VICE PRESIDENT SALES clarified with patient that patient was talking about stool. VICE PRESIDENT SALES was told by patient to put on a glove and put her finger inside her anus to get out her stool. VICE PRESIDENT SALES informed patient that she could not do that, that patient needed to push stool out and will be cleaned up once she's done. Patient continued screaming, saying "GET IT OUT!" VICE PRESIDENT SALES came to other patient's room to inform primary RN. Primary RN entered room to find patient turned on her side with small amount of stool on bed and yelling "GET IT OUT!" Informed patient that primary RN cannot "get it out" due to scope of practice, informed patient that she had already been given several medications (see emar) to have bowel movement. Patient continues to scream "GIVE ME A GLOVE, I'LL DO IT MYSELF!" Patient was given glove and curtain closed for privacy. Patient continues to scream while disimpacting herself, screams heard all throughout central unit. Approximately 20 minutes later, primary RN entered room because patent continues to scream. Upon entering room, patient was found with glove on hand and stool on bed, on glove, on gown, and on handrails of bed. Patient continues to scream "HELP ME! GET I CAN'T GET IT OUT! GET IT OUT FOR ME! I'M DYING HERE!" Informed patient again that all medications to help produce a bowel movement has been given and primary RN cannot disimpact her. Patient continues to scream, "GET ME TOWELS! CLEAN ME UP!" Clean towels and new linen placed in room and patient was informed that when she's done, she will be cleaned up. Patient continues to scream in [place], primary RN left room. Patient's screams still heard throughout central station, screaming in [place]. Secondary RN and VICE PRESIDENT SALES entered room, patient continues to scream, saying primary RN did not want to help her, primary RN did not give her gloves, primary RN did not give her towels, primary RN did not "want" to help her by disimpacting her, did not "want" to give her towels, did not "want" to give her gloves. Secondary RN and VICE PRESIDENT SALES attempted to help patient, but patient continues to scream about what primary RN did not "want" to do and patient continued to argue, not allowing secondary RN and VICE PRESIDENT SALES to assist. Secondary RN and VICE PRESIDENT SALES exited room. Patient called out to nurse's station via telephone, secondary RN answered. Patient asked for charge nurse's name, secondary RN answered. Patient demanded that she speaks with charge master coordinator. 0100: profile stitching machine operator enters room to speak with patient. Patient continues to scream at charge master coordinator, stating primary RN did not "want" to disimpact her, primary RN did not give her gloves, primary RN did not give her towels, primary RN and all other staff "abandoned" her when she "needs help." profile stitching machine operator pointed out to patient that she sees used glove in bed and clean towels within reach. Patient continues to scream at charge master coordinator, stating primary RN did not "want" to give her glove and clean towels. profile stitching machine operator informed patient that primary RN did give her everything as requested and if she was done with bowel movement, she could be cleaned up. Patient continued to scream and argue with charge master coordinator that primary RN did not "want" to do anything as requested. profile stitching machine operator and patient continued to argue over same points for approximately 15 minutes. Secondary RN entered room to help alleviate situation and inform patient that he witnessed primary RN give patient everything she's been demanding. Patient continues to scream at secondary RN and charge master coordinator that primary RN did not give her anything she requested or did not "want" to give her anything she requested and will write a report. Finally when charge master coordinator exists room, she informs primary RN that patient has agreed to be cleaned of stool by secondary RN and VICE PRESIDENT SALES. 0130: Secondary RN and VICE PRESIDENT SALES in room, attempting to clean patient while patient continues to scream that secondary RN and VICE PRESIDENT SALES aren't doing doing it properly. Patient's screams heard out in central station, stating "I HAVE FIBROMYALGIA, I HURT EVERYWHERE, DON'T TOUCH ME LIKE THAT, DON'T MOVE ME LIKE THAT!" Secondary RN and VICE PRESIDENT SALES informing patient that she needs to move extremities and help in turning to clean properly. Patient able to move all four extremities and able to turn herself, but continues to scream "I CAN'T DO IT! I CAN'T DO IT!" Secondary RN and VICE PRESIDENT SALES continue to encourage patient to independently move herself. Patient eventually cleaned of stool, surfaces cleaned of stool, partial linen change done, and gown changed. When attempting to reposition patient, secondary RN and VICE PRESIDENT SALES attempted to lower head of bed, but patient screaming "I CAN'T BREATHE, I HAVE COPD!" Secondary RN and VICE PRESIDENT SALES educating patient that head of bed needs to be lowered to make it easier for patient to move up. Patient continues to scream "I CAN'T DO IT! YOU NEED TO HELP ME! MY SON IS STRONGER THAN YOU AND HE CAN DO IT!" Finally, patient repositioned herself in bed. Then, patient began demanding pillows to "support" all extremities and lower back. Patient demands that secondary RN and VICE PRESIDENT SALES pull pillow down underneath bottom to "support" her lower back. Secondary RN and VICE PRESIDENT SALES attempted to pull pillow down until patient got frustrated, grabbed pillow herself, and positioned pillow underneath her bottom independently while screaming "LIKE THIS!" Secondary RN exited room. VICE PRESIDENT SALES still in room, responding to every patient request, including extra towels for "support," extra pillows for "support," extra blankets "because I'm cold," and "my toes get cold," giving patient snacks and juice, all while patient continues to argue that "nobody helps me" and "everybody abandoned me," even telling VICE PRESIDENT SALES that "you don't help me." VICE PRESIDENT SALES continued to inform patient that she is helping, that secondary RN was helping earlier, that primary RN helped earlier, that charge master coordinator helped earlier. Patient refusing to accept that she has been helped by staff, still repeating "nobody helps me." Finally after every patient request has been fulfilled, VICE PRESIDENT SALES able to exit room at 0200. Will continue to monitor
[2019-12-02] MEDS: IPRATROPIUM BROM 0.5 MG/2.5ML INH SOL NEB SCH ×4 (02:20→14:10)
[2019-12-02] MEDS: ALBUTEROL SULF 2.5 MG/0.5ML(0.5%) NEB SOLN NEB SCH ×4 (02:20→14:10)
--- NOTE | 2019-12-02 04:45 | NUR ---
REFUSE Patient refusing morning vitals. Will inform day shift RN
[2019-12-02] MEDS: MEROPENEM 1GM IVPB 100 ML IV SCH ×2 (05:43→14:00)
--- NOTE | 2019-12-02 06:00 | NUR ---
FALSE STATEMENTS RT came out to nurse's station, stating patient is asking for TELEVISION PRODUCTION ASSISTANT and has a "long list" of things she wants and she "has been asking for help all night," but hasn't "gotten any."
--- NOTE | 2019-12-02 07:51 | NUR ---
RECEIVED PATIENT ALERT AND ORIENTED X4, NOT IN DISTRESS, DIMINISHED LS IN BILATERAL UPPER AND CRACKLES SOUNDS IN LOWER LOBES NOTED, RR=18 SAT= 94% RA, DEEP BREATHING AND COUGHING ENCOURAGED, VERBALIZED UNDERSTANDING, DENIED SOB AND CHEST PAIN AT THIS MOMENT, SR R=62 ON TELE MONITOR, ABDOMEN SOFT WITH ACTIVE BS, LAST BM=12/02/19 REPORTED, CURRAN CATH IN PLACE AND PATENT, DRAINING CLEAR YELLOW URINE, RT. AND LT. MARIE WOUND COVERED WITH DRY AND INTACT OPTI FOAM DRESSING, RT. LOWER EXTREMITY PITTING EDEMA 2+ NOTED, LT LOWE EXTREMITY NONE PITTING EDEMA NOTED, ABLE TO MOVE LEGS AND WIGGLE TOES, RADIAL AND PEDAL PULSES PALPABLE, IN FLUID RESTRICTION 1.2TO 2L/DAY, LIMITING FLUID INTAKE EDUCATION PROVIDED, VERBALIZED UNDERSTANDING, C/O GENERALIZED PAIN L=09/17, NORCO PO PRN WAS OFFERED ORDERED, REFUSED MEDICATION, RESTING ON BED, HEAD OF BED ELEVATED, BED ON LOW POSITION, RAILS UP X2, CALL LIGHT ON REACH, PENDING SS FOR D/C PROCESS, WILL CONTINUE MONITORING.
[2019-12-02 09:00] VITALS: BP 103/64
--- NOTE | 2019-12-02 09:34 | NUR ---
0980 12/02/19- Contacted [facility] at [phone] spoke with Alesha regarding home IV ABX therapy, Alesha confirmed receipt of all faxed documents received yesterday evening. Alesha stated supplies would be delivered to patient's home between 4-7 PM today.
--- NOTE | 2019-12-02 10:15 | NUR ---
LARGE CONSISTENT BROWN BM ON BED NOTED, PENDING D/C, PENDING SS D/C PROCESS, WILL CONTINUE MONITORING.
[2019-12-02] MEDS: methylPREDNISolone SOD SUCC 125 MG/2 ML VL IV SCH (10:58)
[2019-12-02] MEDS: FAMOTIDINE (10MG/ML) 2ML VL IV SCH (10:58)
[2019-12-02] MEDS: FUROSEMIDE 20 MG/2 ML VIAL IV SCH (10:58)
[2019-12-02] MEDS: LACTULOSE 20Gm/30ML SOLN PO SCH (10:59)
[2019-12-02] MEDS: DOCUSATE SOD 100 MG CAP PO SCH (10:59)
[2019-12-02] MEDS: APIXABAN 5 MG TAB PO SCH (10:59)
[2019-12-02] MEDS: METOPROLOL TARTRATE 25 MG TAB PO SCH (11:00)
--- NOTE | 2019-12-02 11:13 | NUR ---
DELIO CARDENAS WAS CALLED FOR D/C TRANSPORTATION TIME AND TRANSPORTATION INFORMATION FOLLOW UP, LEFT A MESSAGE AND WAITING FOR CALL BACK, WILL CONTINUE MONITORING.
--- NOTE | 2019-12-02 11:29 | NUR ---
D/C Planning Placed follow up called to [facility] spoke to Leatha. Informed Leatha patient will be discharging home today. Faxed transportation form request to [facility] requesting a 13:00 case picker time via gurney with oxygen. Transportation will be between 13:00-15:00 with Room [phone]. Informed KATIE Taylor.
--- NOTE | 2019-12-02 12:30 | NUR ---
HOME HEALTH AND HOME IV MEDICATION ARRANGEMENT WAS DONE REPORTED BY DELIO ROSEN, TRANSPORTATION ARRANGEMENT WAS DONE PICKUP TIME 1300 REPORTED, SON NIGEL WAS CALLED ON [phone] FOR UPDATES AND D/C INFORMATION, VERBALIZED UNDERSTANDING, D/C CURRAN CATH, TOLERATED WELL, INCONTINENT, URINE OUT PUT POST CURRAN CATH D/C NOTED, WAITING FOR TRANSPORTATION TO ARRIVE FOR [facility], WILL CONTINUE MONITORING.
[2019-12-02 12:44] VITALS: BP 134/72
[2019-12-02 13:00] VITALS: BP 141/67
--- NOTE | 2019-12-02 14:00 | NUR ---
WAITING FOR TRANSPORTATION, [facility] [employer] CONTACTED ON [phone] FOR DELAY FOLLOW UP, WILL COME IN 20 MINUTES REPORTED.
--- NOTE | 2019-12-02 16:00 | NUR ---
FOLLOW UP SACRAL WOUND PICTURE WAS TAKEN, WOUND CLEANED AND CHANGED DRESSING ORDERED, TOLERATED AND COOPERATED WELL, WAITING FOR FOR TRANSPORTATION.
--- NOTE | 2019-12-02 16:57 | NUR ---
D/C INSTRUCTIONS PROVIDED, MEDICATION PRESCRIPTIONS AND MEDICATION EDUCATION PROVIDED, VERBALIZED UNDERSTANDING, FOLLOW UP APPOINTMENT WITH PCP ARRANGEMENT INFORMATION PROVIDED, SON NIGEL WAS CALLED AND PROVIDED D/C EDUCATION AND INFORMATION, VERBALIZED UNDERSTANDING, D/C TELE AND IV SITE, TOLERATED WELL, VS 97.3 RR=18 SAT=95% P=71 [id number], NOT IN DISTRESS, DENIED PAIN, D/C HOME ON [facility] BY [employer] [facility], TOOK ALL BELONGINGS AND LEFT NOTHING BEHIND.
== END 2019-12-02 17:00 | disposition home health service (06) | DRG 871 ==
LOC: EDBD 23:57 → ER 11-24 00:01 → OVERFLOW 11-24 00:02 → CENTRAL 11-25 20:15 → TELE-CENTR 11-27 19:25
PROVIDERS: ADMIT Nurse Practitioner; ATTEND Family Medicine
PROC: 05HC33Z Insertion of Infusion Device into Left Basilic Vein, Percutaneous Approach (ICD-10-PCS; principal; 2019-11-29)
PROC: B54NZZZ Ultrasonography of Left Upper Extremity Veins (ICD-10-PCS; 2019-11-29)
DX: A41.51 Sepsis due to Escherichia coli [E. coli] (principal); G93.41 Metabolic encephalopathy; J96.20 Acute and chronic respiratory failure, unspecified whether with hypoxia or hypercapnia; I50.33 Acute on chronic diastolic (congestive) heart failure; N39.0 Urinary tract infection, site not specified; J44.1 Chronic obstructive pulmonary disease with (acute) exacerbation; E44.0 Moderate protein-calorie malnutrition; Z68.42 Body mass index [BMI] 45.0-49.9, adult; J84.9 Interstitial pulmonary disease, unspecified; Z16.12 Extended spectrum beta lactamase (ESBL) resistance; G89.29 Other chronic pain; J44.9 Chronic obstructive pulmonary disease, unspecified; E66.01 Morbid (severe) obesity due to excess calories; E78.00 Pure hypercholesterolemia, unspecified; E78.5 Hyperlipidemia, unspecified; F41.9 Anxiety disorder, unspecified; I11.0 Hypertensive heart disease with heart failure; K59.00 Constipation, unspecified; Z79.01 Long term (current) use of anticoagulants; Z86.711 Personal history of pulmonary embolism; Z86.718 Personal history of other venous thrombosis and embolism; Z86.73 Personal history of transient ischemic attack (TIA), and cerebral infarction without residual deficits
CPT/HCPCS: 36415; 51702; 70450; 71045; 80048; 80053; 80307; 80320; 81001; 83605; 83735; 83880; 84484; 85025; 85610; 85730; 87040; 87077; 87081; 87086; 87088; 87186; 94640; 96365; 96375; 96376; 97110; 97116; 97530; G0378; J0696; J1335; J1885; J2185; J2405; J3490